=== PATIENT | female | born 1965 | race American Indian/Alaskan Native ===

== ENCOUNTER 2018-08-05 20:42 | Emergency (ER) | payer BC ==
[2018-08-05 20:48] VITALS: BMI 31.9
[2018-08-05 20:51] VITALS: BP 146/82; PULSE 87; RESP 16; TEMP 98.4; O2SAT 98
--- NOTE | 2018-08-05 21:11 | ED PDOC ---
Lower Extremity Pain/Injury Time Seen by Provider: 08/05/18 20:57 Chief Complaint (Nursing): Lower Extremity Problem/Injury Additional Complaint(s): 52 y/o female presents to the ED complaining of stubbing her left toe on the curb today. Patient states she feels pain all the way back of her foot and feels numbness from her foot up to her leg. PMD: Joseph Scott Past Medical History Reviewed: Historical Data, Nursing Documentation, Vital Signs Vital Signs: Last Vital Signs Temp 98.4 F 08/05/18 20:50 Pulse 87 08/05/18 20:50 Resp 16 08/05/18 20:50 BP 146/82 08/05/18 20:50 Pulse Ox 98 08/05/18 20:50 Primary Care Provider: Joseph Jorge - Medical History PMH: Anemia, Depression, Migraine, Seizures Denies: Chronic Kidney Disease - Family History Family History: States: Unknown Family Hx - Immunization History Hx Influenza Vaccination: No Hx Pneumococcal Vaccination: No - Home Medications Home Medications: Ambulatory Orders Medication Instructions Recorded Ferrous Sulfate [Feosol] 325 mg PO DAILY 04/19/16 Multivitamin [Multi-Vitamin Daily] 1 tab PO DAILY 04/19/16 Naproxen 375 mg PO Q8 PRN #21 tablet 08/05/18 - Allergies Allergies/Adverse Reactions: Allergies Allergy/AdvReac Type Severity Reaction Status Date / Time No Known Allergies Allergy Verified 08/05/18 20:48 Review of Systems ROS Statement: Except As Marked, All Systems Reviewed And Found Negative Musculoskeletal: Positive for: Foot Pain (right) Physical Exam - Reviewed Nursing Documentation Reviewed: Yes Vital Signs Reviewed: Yes - Physical Exam Appears: Positive for: Well, Non-toxic, No Acute Distress Head Exam: Positive for: ATRAUMATIC, NORMAL INSPECTION, NORMOCEPHALIC Skin: Positive for: Normal Color, Warm, Dry Eye Exam: Positive for: EOMI, Normal appearance, PERRL ENT: Positive for: Normal ENT Inspection Neck: Positive for: Normal, Painless ROM, Supple Cardiovascular/Chest: Positive for: Regular Rate, Rhythm. Negative for: Murmur Respiratory: Positive for: Normal Breath Sounds. Negative for: Wheezing Gastrointestinal/Abdominal: Positive for: Normal Exam, Soft. Negative for: Tenderness Back: Positive for: Normal Inspection. Negative for: L CVA Tenderness, R CVA Tenderness Extremity: Positive for: Normal ROM, Swelling (Right toe) Neurological/Psych: Positive for: Awake, Alert, Normal Tone, Oriented (x3). Negative for: Motor/Sensory Deficits - ECG O2 Sat by Pulse Oximetry: 98 - Progress ED Course And Treament: xry of foot: neg for fx; bone spurs noted on heel Upon discussion, patient notes she has had increased falls in general and h/o brain tumor. We will obtain CT of head here to evaluate this. CT HEAD: IMPRESSION: No interval change. No acute intracranial pathology. Encephalomalacia involving left occipital lobe, compatible with an old infarct. Electronically signed on August 05, 2018 10:26:55 PM EDT by: Medical Decision Making Medical Decision Making: Time:[id number] Impression: Plan: -Ibuprofen 600mg -X-ray foot Scribe Attestation: Documented by Nancy Mejia, acting as a scribe for Boy Barclay. Provider Scribe Attestation: All medical record entries made by the Scribe were at my direction and personally dictated by me. I have reviewed the chart and agree that the record accurately reflects my personal performance of the history, physical exam, medical decision making, and the department course for this patient. I have also personally directed, reviewed, and agree with the discharge instructions and disposition. Disposition - Clinical Impression Clinical Impression: Paresthesia of foot - Patient ED Disposition Is Patient to be Admitted: No - Disposition Referrals: Podiatry Clinic [Outside] Disposition: Routine/Home Disposition Time: 21:34 Condition: FAIR Prescriptions: Naproxen 375 mg PO Q8 PRN #21 tablet PRN Reason: Pain, Moderate (4-7) Instructions: Paresthesias (DC), Toe Injury (DC) Forms: [facility] ED School/Work Excuse
--- NOTE | 2018-08-06 08:15 | RAD ---
Date of service: 08/05/2018 PROCEDURE: Left Foot Radiographs. HISTORY: injury COMPARISON: None. TECHNIQUE: 3 views obtained. FINDINGS: BONES: No acute fracture or destructive bony lesion identified. Ossification of the insertion of the Achilles tendon is seen at the posterior calcaneus and there is a moderate plantar calcaneal spur. JOINTS: Normal. SOFT TISSUES: Normal. OTHER FINDINGS: None. IMPRESSION: No acute fracture or dislocation left foot. Moderate plantar calcaneal spur and ossification of the insertion of the Achilles tendon at the posterior calcaneus.
--- NOTE | 2018-08-06 10:15 | CT ---
Date of service: 08/05/2018 PROCEDURE: CT HEAD WITHOUT CONTRAST. HISTORY: increased falls; h/o tumor COMPARISON: Unenhanced head CT 12/15/2015. TECHNIQUE: Axial computed tomography images were obtained through the head/brain without intravenous contrast. Radiation dose: Total exam DLP = 762.27 mGy-cm. This CT exam was performed using one or more of the following dose reduction techniques: Automated exposure control, adjustment of the mA and/or kV according to patient size, and/or use of iterative reconstruction technique. FINDINGS: HEMORRHAGE: No intracranial hemorrhage. BRAIN: Volume loss is reiterated at the left parietal occipital parenchyma status post surgery for apparent tumor here, with no significant interval change in supra or infratentorial brain parenchyma appreciated compared to prior CT 12/15/2015. No positive mass effect throughout the brain with prior bilateral parieto-occipital craniotomy reiterated. No interval lucent findings throughout cerebral cerebellar or brainstem parenchyma. VENTRICLES: Ex vacuo expansion of the left lateral ventricle posterior body and atrium is reiterated with remainder of the ventricular system unremarkable. Cisterns are diffusely unremarkable once again. CALVARIUM: Prior craniotomy described in brain section above. No acute fracture appreciable. PARANASAL SINUSES: Unremarkable as visualized. No significant inflammatory changes. MASTOID AIR CELLS: Unremarkable as visualized. No inflammatory changes. OTHER FINDINGS: None. IMPRESSION: Stable postoperative cystic encephalomalacia is appreciate the left parieto-occipital distribution with prior bilateral parietal and occipital craniotomy again evident. No definitive acute interval findings by standard CT criteria. Follow-up MRI without contrast can be utilized to better characterize the operative site if clinically warranted. Preliminary report provided by Jose M, 08/05/2018, 10:26 p.m..
== END 2018-08-05 21:35 | disposition home or self-care (01) ==
LOC: H.ER 20:42
DX: R20.2 Paresthesia of skin (principal); Z86.59 Personal history of other mental and behavioral disorders; G93.89 Other specified disorders of brain